=== PATIENT | female | born 1980 | race Caucasian/White ===

== ENCOUNTER 2020-03-29 11:56 | Emergency (ER) | payer OTHER, SELFPAY ==
--- NOTE | ~2020-03-29 | XR_ITS ---
EXAMINATION: XR chest 1V portable INDICATION: Shortness of breath, COVID 19 TECHNIQUE: Portable AP chest at 1435 hours COMPARISON: 03/06/2017 FINDINGS: The lungs are free of acute opacities. There is no pleural effusion or pneumothorax. The ca rdiomediastinal silhouette is normal. IMPRESSION: 1. No acute cardiopulmonary abnormality. Reviewed, dictated and finalized at location A. BUSINESS SYSTEMS ANALYST
[2020-03-29 12:06] VITALS: BP 145/100; PULSE 112; RESP 18; TEMP 36.3; O2SAT 100
--- NOTE | 2020-03-29 12:22 | ECG_ITS ---
Measurements Intervals [place] Rate: 92 P: 23 PA: 126 QRS: 47 QRSD: 93 T: 26 QT: 343 QTc: 425 Interpretive Statements SINUS RHYTHM NORMAL ECG Electronically Signed On 03-29-2020 14:04:[address] by Nirmal Lara D.O.
[2020-03-29 12:33] VITALS: BP 135/101; BP 139/101; PULSE 106; PULSE 108
[2020-03-29 12:35] VITALS: BP 135/99; PULSE 120
[2020-03-29] MEDS: ONDANSETRON INJ 4 MG/2 ML VIAL IV PUSH (12:54)
[2020-03-29] MEDS: KETOROLAC 30 MG/ML VIAL (*BKC) IV PUSH (12:54)
[2020-03-29] MEDS: SODIUM CHLORIDE 0.9% IV 1,000 ML 999 ML IV CONT (12:55)
[2020-03-29 13:24] LABS: Basophils Absolute Auto 0.1 K/mm3 (0.0-0.1); Basophils Percent Auto 0.5 % (0.2-1.2); Eosinophils Absolute Auto 0.1 K/mm3 (0-0.3); Eosinophils Percent Auto 0.8 % (0-4.4); Hematocrit 43.8 % (37.0-47.0); Immature Granulocyte Absolute 0.03 K/mm3 (0.00-0.031); Immature Granulocyte Percent A 0.3 % (0-0.5); Lymphocytes Absolute Auto 3.11 K/mm3 (0.9-3.2); Lymphocytes Percent Auto 30.3 % (18.3-44.2); Mean Corpuscular HGB Conc 34.2 g/dl (32-36); Mean Corpuscular Hemoglobin 28.4 pg (26-34); Monocytes Absolute Auto 0.8 K/mm3 (0.1-0.6); Neutrophils Absolute Auto 6.2 K/mm3 (1.3-6.7); Neutrophils Percent Auto 60.1 % (45.5-73.1); Platelet Count Result 419 k/mm3 (150-375); Red Blood Count 5.28 M/mm3 (4.2-5.4); Red Cell Distribution Width 12.2 % (11.5-14.5); White Blood Count 10.3 K/mm3 (4.5-10.0)
[2020-03-29 13:45] LABS: Anion Gap 12 mmol/L (8-16); Blood Urea Nitrogen 16 mg/dL (7-17); Calcium 9.6 mg/dL (8.4-10.2); Carbon Dioxide 25 mmol/L (22-30); Chloride 100 mmol/L (98-107); Estimated CRCL calculation 111 ml/min; Estimated Glomerular Filt Rate > 60; Glucose 105 mg/dL (65-105); Potassium 3.5 mmol/L (3.4-5.0); Sodium 137 mmol/L (137-145)
[2020-03-29 14:40] VITALS: BP 124/83; PULSE 88; RESP 20; O2SAT 97
--- NOTE | 2020-03-29 15:08 | ED.GENADULT ---
HPI - General Adult General Chief complaint: Syncope Stated complaint: MAR 22COVID+ SYNCOPE, N/V/D Time Seen by Provider: 03/29/20 12:20 Source: patient Limitations: no limitations History of Present Illness HPI narrative: 39 years old white female presents with intermittent nausea, vomiting, diarrhea, body aches started few days ago. Are gradually getting better. Today with vomiting and blacking out For few seconds. Patient was tested positive for Covid on March 22. Patient lives with her son, Currently feeling okay. Related Data Home Medications Medication Instructions Recorded Confirmed montelukast mg 03/29/20 norethin-e.estradiol triphasic tablet 03/29/20 03/29/20 [Nortrel (28)] Allergies Allergy/AdvReac Type Severity Reaction Status Date / Time No Known Allergies Allergy Mild Verified 03/29/20 12:09 Review of Systems Review of Systems: Narrative: CONSTITUTIONAL: Denies fever, chills, or sweats. EYES: Denies visual changes, redness, or discharge. ENT: Denies rhinorrhea, congestion, sore throat, or otalgia. CARDIOVASCULAR: Denies chest pain, palpitations, or edema. RESPIRATORY: Denies cough or dyspnea. GASTROINTESTINAL: Denies abdominal pain, nausea, vomiting, or diarrhea. GENITOURINARY: Denies dysuria or hematuria. SKIN: Denies rash or itching. MUSCULOSKELETAL: Denies back pain, joint pain, or myalgia. NEUROLOGIC: Denies headache, numbness, or weakness. PSYCHIATRIC: Denies anxiety or depression. [facility] Social History Social History Gender identity (if verbalized by the patient): Female Exam Narrative: Exam Narrative: General appearance: Well-developed, well-nourished Skin: Normal color Head: Normocephalic, nontraumatic Eyes: Clear conjunctiva ENT: Oropharynx normal, ears normal, nose normal Neck: Supple, nontender Chest and respiratory: Airway patent, no respiratory distress, no accessory muscle use Heart: Regular rate/rhythm Abdomen: Soft, nontender, no organomegaly, quiet bowel sounds Vascular: Normal peripheral pulses, normal capillary refill. Musculoskeletal: Normal range of motion, nontender back Neurologic: Alert and oriented ?3, [employer] is normal as tested, no gross motor deficit Course Course Emergency Course: Stable, improving Vital Signs Vital signs: Vital Signs Temperature 36.3 C L 03/29/20 12:06 Pulse Rate 112 H 03/29/20 12:06 Respiratory Rate 18 03/29/20 12:06 Blood Pressure 145/100 H 03/29/20 12:06 Pulse Oximetry 100 03/29/20 12:06 Temperature 36.3 C L 03/29/20 12:06 Pulse Rate 88 03/29/20 14:40 Respiratory Rate 20 03/29/20 14:40 Blood Pressure 124/83 03/29/20 14:40 Pulse Oximetry 97 03/29/20 14:40 Medical Decision Making MDM Narrative Medical decision making narrative: Patient presents with Covid symptoms. Labs, chest x-ray, IV fluids, IV Zofran ordered. Further plan to follow. Patient lightheadedness and syncope high likely vasovagal secondary to gagging and trying to vomit. Vital Signs Vital Signs: Vital Signs Temperature 36.3 C L 03/29/20 12:06 Pulse Rate 112 H 03/29/20 12:06 Respiratory Rate 18 03/29/20 12:06 Blood Pressure 145/100 H 03/29/20 12:06 Pulse Oximetry 100 03/29/20 12:06 Temperature 36.3 C L 03/29/20 12:06 Pulse Rate 88 03/29/20 14:40 Respiratory Rate 20 03/29/20 14:40 Blood Pressure 124/83 03/29/20 14:40 Pulse Oximetry 97 03/29/20 14:40 Lab Data Result diagrams: 03/29/20 12:58 03/29/20 12:58 Labs: Lab Results 03/29/20 03/29/20 Range/Units 12:58 12:58 WBC 10.3 H (4.5-10.0) K/mm3 RBC 5.28 (4.2-5.4) M
[2020-03-29 15:16] VITALS: BP 127/91; PULSE 83; RESP 20; O2SAT 98
[2020-03-29 16:02] VITALS: BP 130/96; PULSE 84; RESP 20; O2SAT 97
== END 2020-03-29 16:15 | disposition home or self-care (01) ==
PROVIDERS: Emergency Provider Emergency Medicine; PCP Internal Medicine
DX: U07.1 COVID-19 (principal); R55 Syncope and collapse
CPT/HCPCS: 36415; 71045; 80048; 81025; 85025; 93005; 96361; 96365; 96375; 99284; J0131; J1885; J2405; J7030

== ENCOUNTER → 2022-09-14 10:11 | Outpatient (CLI) | payer BC, SELFPAY ==
--- NOTE | ~2022-09-14 | MM_ITS ---
EXAMINATION: MM screening nano BI w shannen HISTORY: Screening mammogram TECHNIQUE: Craniocaudal and mediolateral oblique 3-D tomosynthesis images were obtained and synthetic 2-D images were generated. CAD analysis was submitted and interpreted. COMPARISON: No prior mammogram is available for comparison at this institution. BREAST PARENCHYMAL COMPOSITION: There are scattered areas of fibroglandular density. FINDINGS: There is no evidence of suspicious mass, calcification, or architectural distortion to sugg est malignancy in either breast. There has been no suspicious interval change. IMPRESSION: 1. No mammographic evidence of malignancy. 2. Recommend routine screening mammography in one year. BI-RADS Category 1: Negative Reviewed, dictated and finalized at location C.
== END ==
PROVIDERS: PCP Obstetrics & Gynecology; Visit Provider Obstetrics & Gynecology
DX: Z12.31 Encounter for screening mammogram for malignant neoplasm of breast (principal)
CPT/HCPCS: 77063; 77067

== ENCOUNTER 2023-09-19 07:15 | Outpatient (CLI) | payer BC, SELFPAY ==
--- NOTE | ~2023-09-19 | MM_ITS ---
EXAMINATION: MM screening nano BI w shannen HISTORY: Screening mammogram TECHNIQUE: Craniocaudal and mediolateral oblique 3-D tomosynthesis images were obtained and synthetic 2-D images were generated. CAD analysis was submitted and interpreted. COMPARISON: 09/14/2022 BREAST PARENCHYMAL COMPOSITION:Not Dense. There are scattered areas of fibroglandular density. FINDINGS: No suspicious mass, calcification, or architectural distortion are identified in either carter ast to suggest malignancy. There has been no suspicious interval change. IMPRESSION: No mammographic evidence of malignancy. Recommend routine screening mammography in one year. BI-RADS Category 1: Negative Reviewed, dictated and finalized at location .
== END 2023-09-19 07:16 ==
LOC: MICIMG 07:17
PROVIDERS: PCP Internal Medicine; Visit Provider Obstetrics & Gynecology
DX: Z12.31 Encounter for screening mammogram for malignant neoplasm of breast (principal)
CPT/HCPCS: 77063; 77067

== ENCOUNTER 2024-09-21 11:22 | Outpatient (CLI) | payer BC, SELFPAY ==
--- NOTE | ~2024-09-21 | MM_ITS ---
EXAMINATION: MM screening nano BI w shannen HISTORY: Screening mammogram TECHNIQUE: Craniocaudal and mediolateral oblique 3-D tomosynthesis images were obtained and synthetic 2-D images were generated. CAD analysis was submitted and interpreted. COMPARISON: 09/19/2023, 09/14/2022 BREAST PARENCHYMAL COMPOSITION:Not Dense. The breasts are almost entirely fatty FINDINGS: No suspicious mass, calcification, or architectural distortion are identified in either carter ast to suggest malignancy. There has been no suspicious interval change. IMPRESSION: No mammographic evidence of malignancy. Recommend routine screening mammography in one year. BI-RADS Category 1: Negative Reviewed, dictated and finalized at location .
== END 2024-09-21 11:23 | disposition home or self-care (01) ==
LOC: MICIMG 11:23
PROVIDERS: PCP Obstetrics & Gynecology; Visit Provider Obstetrics & Gynecology
DX: Z12.31 Encounter for screening mammogram for malignant neoplasm of breast (principal)
CPT/HCPCS: 77063; 77067